=== PATIENT | female | born 1985 | race Caucasian/White ===

== ENCOUNTER 2023-09-17 08:38 | Emergency (ER) | payer OTHER ==
[2023-09-17] MEDS ORDERED: HYDROCODONE/APAP 10/325 TAB ONE (09:19)
--- NOTE | 2023-09-17 09:27 | EDPHYS ---
Physician Documentation [facility] Name: Lidia Pina Age: 37 yrs Sex: Female : 1985 Arrival Date: 09/17/2023 Time: 08:38 Bed 19 Private MD: ED Physician Aliyah Lucio HPI: 09/16 08:57 This 37 yrs old Female presents to ER via Ambulatory with complaints of Pain, [facility] Medication Refill. 08:57 37-year-old female with a past medical history of newly diagnosed breast cancer jh7 presents to the ER for right breast pain. Patient reports that she was just discharged from the hospital and has not had her initial visit with her Linda Urrutia oncologist yet. She reports that she is out of of pain and nausea medicine. She states that she was taking oxycodone. Patient crying in triage.. Historical: - Allergies: 08:57 No Known Allergies; ll1 - PMHx: 08:57 Breast CA/tumor; pseudo cyst pancreas; ll1 - PSHx: 08:57 breast implants; ll1 - Immunization history:: Adult Immunizations up to date. - Infectious Disease History:: Denies. - Social history:: Smoking status: Reported history of juuling and/or vaping. ROS: 08:57 Constitutional: Per HPI [facility] Exam: 08:57 Head/Face: Normocephalic, atraumatic. Eyes: Pupils equal round and reactive to light, 7 extra-ocular motions intact. Lids and lashes normal. Conjunctiva and sclera are non-icteric and not injected. Cornea within normal limits. Periorbital areas with no swelling, redness, or edema. Neck: Trachea midline, no thyromegaly or masses palpated, and no cervical lymphadenopathy. Supple, full range of motion without nuchal rigidity, or vertebral point tenderness. No Meningismus. Cardiovascular: Regular rate and rhythm with a normal S1 and S2. No gallops, murmurs, or rubs. Normal PMI, no JVD. No pulse deficits. Respiratory: Lungs have equal breath sounds bilaterally, clear to auscultation and percussion. No rales, rhonchi or wheezes noted. No increased work of breathing, no retractions or nasal flaring. Abdomen/GI: Soft, non-tender, with normal bowel sounds. No distension or tympany. No guarding or rebound. No evidence of tenderness throughout. Skin: Warm, dry with normal turgor. Normal color with no rashes, no lesions, and no evidence of cellulitis. MS/ Extremity: Pulses equal, no cyanosis. Neurovascular intact. Full, normal range of motion. Neuro: Awake and alert, GCS 15, oriented to person, place, time, and situation. Motor strength 5/5 in all extremities. Sensory grossly intact. Normal gait. 08:57 Constitutional: The patient appears alert, awake, in obvious pain, 08:57 Chest/axilla: Breasts: mass(es), that is large, in the right breast, that is tender, that is fixed, Vital Signs: 08:58 BP 155 / 120; Pulse 110; Resp 18; Temp 97; Pulse Ox 96% on R/A; Weight 63.5 kg; Height ll1 5 ft. 6 in. ; Pain 9/10; 09:40 BP 148 / 101; Pulse 79; Resp 16; Pulse Ox 96% on R/A; nj1 08:58 Body Mass Index 22.60 (63.50 kg, 167.64 cm) ll1 08:58 Pain Scale: Adult ll1 MDM: 08:58 Patient medically screened. [facility] 09:35 ED course: Patient very upset at discharge and states that the last time she was [facility] admitted to the hospital she was septic and is concerned that she is septic again due to elevated heart rate. Explained to the patient that she is crying and a mild elevation in heart rate is normal, but that we are happy to draw basic labs to ease her concerns.. 09:52 Differential diagnosis: Breast cancer, breast mass, breast abscess. Data reviewed: [facility] vital signs, nurses notes. I considered the following discharge prescriptions or medication management in the emergency department Medications were administered in the Emergency Department. See MAR. Care significantly affected by the following chronic conditions: Cancer. Counseling: I had a detailed discussion with the patient and/or guardian regarding the historical points, exam findings, and any diagnostic results supporting the discharge/admit diagnosis, the need for outpatient follow up, Oncology, to return to the emergency department if symptoms worsen or persist or if there are any questions or concerns that arise at home. ED course: When the RN went to start the IV on the patient, she stated that after talking with her significant other, they would like to go to a hospital that has oncology so she can initiate cancer treatment. She apologized, and we told her that we totally understood and were happy to care for her. The patient requested her discharge paperwork. Pt was prescribed tramadol and zofran.. Administered Medications: 09:24 Drug: Drummond PO 10 mg-325 mg 1 tabs PO once Route: PO; rs5 09:40 Follow up: Response: No adverse reaction nj1 Disposition: 11:26 Co-signature as Attending Physician, Aliyah Lucio MD I reviewed the patient's care sd2 provided by the Advanced Practice Provider and agree with the diagnosis and treatment plan. Disposition Summary: 09/17/23 09:55 Discharge Ordered Notes: Location: Home(09/17/23 09:55) [facility] Problem: an ongoing problem(09/17/23 09:55) [facility] Symptoms: are unchanged(09/17/23 09:55) [facility] Condition: Stable(09/17/23 09:55) [facility] Diagnosis - Personal history of malignant neoplasm of breast(09/17/23 09:55) [facility] - Disorder of breast, unspecified [facility] Followup: [facility] - With: Private Physician - When: 2 - 3 days - Reason: Recheck today's complaints Discharge Instructions: - Discharge Summary Sheet [facility] - Breast Cancer, Female [facility] Forms: - Medication Reconciliation Form [facility] - Antibiotic Education [facility] - Prescription Opioid Use [facility] - Patient Portal Instructions [facility] - Leadership Thank You Letter [facility] Signatures: Dispatcher [employer] Bruce Funk RN RN ll1 Oneyda Garcia FNP SAFETY DIRECTOR [facility] Aliyah Lucio MD MD sd2 Magno Daily RN RN rs5 Rohini Delong RN RN nj1 Corrections: (The following items were deleted from the chart) 09:34 09:27 Home [place] [address] :34 09:27 an ongoing problem [place] [address] :34 09:27 are unchanged [place] [address] 09:34 09:27 Stable [place] [address] 09:34 09:27 Personal history of malignant neoplasm of breast [place] [address] 09:34 09:27 Right Breast Pain [place] [address] 09:54 09:30 Differential diagnosis: [place] [address] 09:56 09:52 ED course: When the RN went to start the IV on the patient, she stated that after marina talking with her significant other, they would like to go to a hospital that has oncology so she can initiate cancer treatment. She apologized, and we told her that we totally understood and were happy to care for her. The patient requested her discharge paperwork.. jhOmar
--- NOTE | 2023-09-17 09:27 | ER ---
Nurse's Notes [facility] Name: Lidia Pina Age: 37 yrs Sex: Female : 1985 Arrival Date: 09/17/2023 Time: 08:38 Bed 19 Private MD: Diagnosis: Personal history of malignant neoplasm of breast;Disorder of breast, unspecified Presentation: 09/16 08:58 Chief complaint: Patient states: Severe R breast pain for 20 hours. Was seen in [place] [id number] Will about 3 weeks, breast CA diagnosis. Fever 101.7 at home. Coronavirus screen: Client denies travel out of the [place] in the last 14 days. At this time, the client does not indicate any symptoms associated with coronavirus-19. Ebola Screen: Patient denies travel to an Ebola-affected area in the 21 days before illness onset. Initial Sepsis Screen: Does the patient meet any 2 criteria? No. Patient's initial sepsis screen is negative. Does the patient have a suspected source of infection? No. Patient's initial sepsis screen is negative. Risk Assessment: Do you want to hurt yourself or someone else? Patient reports no desire to harm self or others. Onset of symptoms was September 16, 2023. 08:58 Method Of Arrival: Ambulatory [facility] 08:58 Acuity: AUDELIA 3 ll1 Triage Assessment: 09:00 General: Appears uncomfortable, Behavior is calm, cooperative, appropriate for age. ll1 Pain: Complains of pain in R breast Pain currently is 9 out of 10 on a pain scale. Quality of pain is described as aching. Historical: - Allergies: 08:57 No Known Allergies; ll1 - PMHx: 08:57 Breast CA/tumor; pseudo cyst pancreas; ll1 - PSHx: 08:57 breast implants; ll1 - Immunization history:: Adult Immunizations up to date. - Infectious Disease History:: Denies. - Social history:: Smoking status: Reported history of juuling and/or vaping. Screenin:38 [facility] ED Fall Risk Assessment (Adult) History of falling in the last 3 months, nj1 including since admission No falls in past 3 months (0 pts) Confusion or Disorientation No (0 pts) Intoxicated or Sedated No (0 pts) Impaired Gait No (0 pts) Mobility Assist Device Used No (0 pt) Altered Elimination No (0 pt) Score/Fall Risk Level 0 - 2 = Low Risk Oriented to surroundings, Maintained a safe environment, Hourly rounding (assess needs \T\ fall precautionary measures) done. Abuse screen: Denies threats or abuse. Denies injuries from another. Nutritional screening: No deficits noted. Tuberculosis screening: No symptoms or risk factors identified. Assessment: 09:30 General: Appears in no apparent distress. uncomfortable, Behavior is calm, cooperative, nj1 appropriate for age. 09:30 Neuro: Level of Consciousness is awake, alert, obeys commands, Oriented to person, nj1 place, time, situation. Cardiovascular: Patient's skin is warm and dry. Respiratory: Airway is patent Respiratory effort is even, unlabored. 09:30 Pain: Complains of pain in right breast Pain currently is 9 out of 10 on a pain scale. nj1 09:30 Reassessment: Pt concerned about being discharge without further evaluation. nj1 09:40 Reassessment: Upon entering patients room to establish IV access and draw blood, nj1 patient states they prefer to leave this facility to go to the facility were she is being followed for her medical problems. Education provided. Vital Signs: 08:58 BP 155 / 120; Pulse 110; Resp 18; Temp 97; Pulse Ox 96% on R/A; Weight 63.5 kg; Height ll1 5 ft. 6 in. ; Pain 9/10; 09:40 BP 148 / 101; Pulse 79; Resp 16; Pulse Ox 96% on R/A; nj1 08:58 Body Mass Index 22.60 (63.50 kg, 167.64 cm) ll1 08:58 Pain Scale: Adult ll1 ED Course: 08:46 Patient arrived in ED. mg5 08:57 Arm band placed on. ll1 08:58 [facility]ney[facility] jh7 08:58 Aliyah Lucio MD is Attending Physician. jh7 09:00 Triage completed. ll1 09:28 Rohini Delong, JOHAN is Primary Nurse. nj1 09:30 Patient has correct armband on for positive identification. Bed in low position. Call nj1 light in reach. Adult w/ patient. Provided Education on: call light, fall precautions. 09:35 Notified Nurse Practitioner and/or Physician Freelance Photographer of see nurses notes. nj1 09:45 No provider procedures requiring assistance completed. nj1 09:45 Patient did not have IV access during this emergency room visit. nj1 09:53 Notified Nurse Practitioner and/or Physician Freelance Photographer of Pt does not want to stay for nj1 further work up/evaluation. Administered Medications: 09:24 Drug: Sidon PO 10 mg-325 mg 1 tabs PO once Route: PO; rs5 09:40 Follow up: Response: No adverse reaction nj1 Medication: 09:55 VIS not applicable for this client. nj1 Outcome: 09:27 Discharge ordered by . 7 09:55 Discharge ordered by . [facility] 09:55 Discharged to home ambulatory, with significant other, [facility] 09:55 Condition: stable [facility] 09:55 Discharge instructions given to patient, significant other, Instructed on discharge instructions, follow up and referral plans. medication usage, Demonstrated understanding of instructions, follow-up care, medications, Prescriptions given X 2, 09:59 Patient left the ED. [facility] Signatures: Bruce Urban RN RN 1 Oneyda Garcia FNP HEALTHCARE REPRESENTATIVE [facility] Magno Daily RN RN rs5 Rohini Delong RN RN nj1 Gretta Silveira mg5 Corrections: (The following items were deleted from the chart) 10:22 09:40 Reassessment: Upon entering patients room to establish IV access and draw blood, nj1 patient states they prefer to leave this facility to go to the facility were she is being followed for her medical problems. nj1
[2023-09-21 14:28] VITALS: BP 155/120; TEMP 97; O2SAT 96
== END 2023-09-17 09:59 | disposition home or self-care (01) ==
LOC: ER 08:38
DX: N64.9 Disorder of breast, unspecified (principal); C50.919 Malignant neoplasm of unspecified site of unspecified female breast
CPT/HCPCS: 99283